=== PATIENT | female | born 1965 | race Caucasian/White ===

== ENCOUNTER → 2016-08-04 | Outpatient (CLI) | payer OTHER ==
--- NOTE | 2016-08-11 10:51 | RADIOLOGY REPORT PS360 ---
DIG MAMM-SCREEN SUMIT W/CAD CAD Screening ORDERING PHYSICIAN : Dillon Juarez MD PATIENT AGE: 51 years GENDER: Female COMPARISON: July 2015, 2012, 2010 & September 2013, INDICATION: Routine screening prior TECHNIQUE: Standard CC and MLO images were obtained. R2 CAD reviewed. FINDINGS: Scattered fibroglandular elements bilateral . Moderate density breast. RIGHT BREAST: Small 4 mm focal density deep right breast seen on MLO view but it dissipates on cc view. Patient had similar area here at 2013 and 2012 and 2010 of which has come and gone over different studies.. Was most notable and similar 2013 MLO view. I believe given its small size follow-up be adequate as it is more likely a cyst or benign feature. However we suggest right mammogram 6 months LEFT BREAST: Stable no new findings Follow-up in one year on left IMPRESSION: Right Breast .. Small 4 mm nodular density on MLO view only. Follow-up may reflect a small cyst which is fluctuated in been seen here previously. However would suggest a follow-up right mammogram 6 months to confirm stability Left breast. Stable no new areas concern follow-up in one year BI-RADS CATEGORY: 3_Probably Benign-Short Term F/U RECOMMENDED FOLLOWUP: 6MONTH FOLLOW-UP -right mammogram (A letter has been sent to the patient regarding results of the study.)
== END ==
LOC: RAD 14:00
DX: Z12.31 Encounter for screening mammogram for malignant neoplasm of breast (principal); N64.4 Mastodynia; N60.19 Diffuse cystic mastopathy of unspecified breast
CPT/HCPCS: G0202